=== PATIENT | male | born 1935 | race Caucasian/White ===

== ENCOUNTER 2020-10-10 07:46 | Observation (INO) ==
[2020-10-10] MEDS ORDERED: NS 0.9% 1000 ml BAG 1,000 ML IV ONE (07:53)
[2020-10-10 08:09] LABS: ABS Eosinophils 0.2 10^3/ul (0-0.6); ABS Lymphocytes 1.2 10^3/ul (1.0-4.8); ABS Monocytes 0.6 10^3/ul (0-0.8); ABS Neutrophils 4.8 10^3/ul (1.5-7.7); Eosinophil % 2.6 %; Hematocrit 45 % (42-52); Hemoglobin 15.3 g/dL (14.0-18.0); Lymphocyte % 17.5 %; Mean Corpuscular HGB Conc 34 g/dL (31-36); Mean Corpuscular Hemoglobin 32 pg (27-31); Mean Corpuscular Volume 93 fL (80-94); Mean Platelet Volume 9.4 fL (7.4-10.4); Nucleated Red Blood Cells % 0.1; Platelet Count 108 10^3/uL (150-450); Red Blood Count 4.85 10^6 /uL (4.18-5.48); Red Cell Distribution Width 14 % (10-15); White Blood Count 6.9 10^3/uL (3.5-10.8)
[2020-10-10] MEDS ORDERED: Iodixanol (CONTRAST) 320 MG/ML 100 ML SDV IV ONE (08:13)
[2020-10-10 08:19] LABS: Activated Partial Thrombo Time 44.4 seconds (26.0-38.0); INR 3.16 (0.82-1.09)
[2020-10-10 08:22] LABS: Albumin 3.6 g/dL (3.2-5.2); Albumin/Globulin Ratio 1.5 (1-3); Calcium 8.6 mg/dL (8.6-10.3); EGFR African American 87.6 (>60); EGFR Non-African American 72.4 (>60); Globulin 2.4 g/dL (2-4); HDL Cholesterol 47.1 mg/dL; Potassium 4.2 mmol/L (3.5-5.0); Total Bilirubin 1.3 mg/dL (0.2-1.0); Troponin I 0.01 ng/mL (<0.03)
[2020-10-10] MEDS ORDERED: Magnesium Hydroxide LIQ 30 ML UDC PO PRN (12:17)
[2020-10-10] MEDS ORDERED: Polyethylene Glycol 3350 17 GM PACKET PO PRN (12:20)
[2020-10-10 12:46] LABS: Urine Appearance Clear; Urine Bacteria Absent (Absent); Urine Bilirubin Negative (Negative); Urine Blood Negative (Negative); Urine Color Yellow; Urine Glucose Negative (Negative); Urine Ketones Negative (Negative); Urine Nitrite Negative (Negative); Urine Protein Negative (Negative); Urine Red Blood Cell 2+(6-10/hpf) (Absent); Urine Squamous Epithelial Cell Present (Absent); Urine Urobilinogen Negative (Negative); Urine White Blood Cell Trace(0-5/hpf) (Absent)
[2020-10-10] MEDS ORDERED: Warfarin per PHARMACY **NOTE FOLLOW UP SCH (13:00)
[2020-10-10 13:45] LABS: Indirect Bilirubin 1.1 mg/dL (0.3-1.0)
[2020-10-10] MEDS ORDERED: Lidocaine PATCH 5% PATCH TRANSDERM PRN (15:34)
[2020-10-10] MEDS ORDERED: Warfarin - No Order Today **NOTE FOLLOW UP ONE (17:00)
[2020-10-11 06:09] LABS: ABS Eosinophils 0.2 10^3/ul (0-0.6); ABS Lymphocytes 1.2 10^3/ul (1.0-4.8); ABS Monocytes 0.6 10^3/ul (0-0.8); ABS Neutrophils 5.2 10^3/ul (1.5-7.7); Eosinophil % 3.1 %; Hematocrit 47 % (42-52); Hemoglobin 15.7 g/dL (14.0-18.0); Lymphocyte % 16.2 %; Mean Corpuscular HGB Conc 34 g/dL (31-36); Mean Corpuscular Hemoglobin 32 pg (27-31); Mean Corpuscular Volume 94 fL (80-94); Mean Platelet Volume 9.3 fL (7.4-10.4); Platelet Count 119 10^3/uL (150-450); Red Blood Count 4.95 10^6 /uL (4.18-5.48); Red Cell Distribution Width 15 % (10-15); White Blood Count 7.2 10^3/uL (3.5-10.8)
[2020-10-11 06:12] LABS: INR 2.78 (0.82-1.09)
[2020-10-11 06:26] LABS: Calcium 8.7 mg/dL (8.6-10.3); EGFR African American 81.8 (>60); EGFR Non-African American 67.6 (>60); Potassium 3.9 mmol/L (3.5-5.0)
[2020-10-11] MEDS: Potassium Chlor 20 meq TAB.ER PO SCH (08:38)
[2020-10-11] MEDS: Warfarin DAILY REMINDER **NOTE FOLLOW UP SCH (16:37)
[2020-10-12 06:46] LABS: INR 2.49 (0.82-1.09)
[2020-10-12] MEDS: Potassium Chlor 20 meq TAB.ER PO SCH (08:26)
[2020-10-12] MEDS: Warfarin DAILY REMINDER **NOTE FOLLOW UP SCH (16:14)
[2020-10-13 07:48] LABS: INR 2.55 (0.82-1.09)
[2020-10-13] MEDS: Potassium Chlor 20 meq TAB.ER PO SCH (07:57)
[2020-10-13 11:46] VITALS: BP 111/76
== END 2020-10-13 12:15 ==
LOC: ED 07:46 → MED 12:17 → INTOOBSV 12:17 → MED 14:18
PROVIDERS: ADMIT Hospitalist; ATTEND Internal Medicine

== ENCOUNTER 2021-01-31 05:15 | Inpatient (IN) ==
[2021-01-31] MEDS ORDERED: NS 0.9% 1000 ml BAG 1,000 ML IV ONE (05:23)
[2021-01-31] MEDS ORDERED: Naloxone 0.4 mg VIAL 0.4 mg/ml 1 ml VIAL IV PUSH ONE (05:24)
[2021-01-31 06:41] LABS: ABS Lymphocytes 0.8 10^3/ul (1.0-4.8); ABS Monocytes 0.3 10^3/ul (0-0.8); ABS Neutrophils 4.6 10^3/ul (1.5-7.7); Eosinophil % 0.6 %; Hematocrit 44 % (42-52); Hemoglobin 14.5 g/dL (14.0-18.0); Lymphocyte % 14.3 %; Mean Corpuscular HGB Conc 33 g/dL (31-36); Mean Corpuscular Hemoglobin 31 pg (27-31); Mean Corpuscular Volume 93 fL (80-94); Mean Platelet Volume 9.7 fL (7.4-10.4); Platelet Count 113 10^3/uL (150-450); Red Blood Count 4.68 10^6 /uL (4.18-5.48); Red Cell Distribution Width 15 % (10-15); White Blood Count 5.8 10^3/uL (3.5-10.8)
[2021-01-31 06:55] LABS: Rapid COVID-19 Molecular Undetected (Undetected)
[2021-01-31 07:08] LABS: Activated Partial Thrombo Time 31.7 seconds (26.0-38.0); INR 1.48 (0.86-1.15)
[2021-01-31 07:12] LABS: Albumin 3.2 g/dL (3.2-5.2); Albumin/Globulin Ratio 1.4 (1-3); Calcium 8.3 mg/dL (8.6-10.3); EGFR African American 92.7 (>60); EGFR Non-African American 76.6 (>60); Globulin 2.3 g/dL (2-4); HDL Cholesterol 37.4 mg/dL; Potassium 4.5 mmol/L (3.5-5.0); Total Bilirubin 0.7 mg/dL (0.2-1.0); Total Protein 5.5 g/dL (6.4-8.9)
[2021-01-31 07:14] LABS: Troponin I 0.01 ng/mL (<0.03)
[2021-01-31 08:00] LABS: Urine Appearance Cloudy; Urine Bilirubin Negative (Negative); Urine Blood 3+ (Negative); Urine Color Yellow; Urine Glucose Negative (Negative); Urine Ketones Negative (Negative); Urine Nitrite Negative (Negative); Urine Protein Negative (Negative); Urine Specific Gravity 1.021 (1.002-1.030); Urine Urobilinogen Negative (Negative)
[2021-01-31 08:04] LABS: Urine Bacteria Absent (Absent); Urine Red Blood Cell 3+(>10/hpf) (Absent); Urine White Blood Cell Trace(0-5/hpf) (Absent)
[2021-01-31] MEDS ORDERED: Morphine 2 MG/ML SYRINGE IV PRN (09:14)
[2021-01-31] MEDS: Atropine 1% (ORAL/SL) 15 ML BTL SL PRN ×3 (15:27→19:41)
[2021-01-31] MEDS ORDERED: LORazepam 2 mg VIAL 1 ml IV PUSH PRN (17:20)
[2021-01-31] MEDS ORDERED: Lorazepam PYXIS KEY PRN (17:20)
[2021-01-31] MEDS: Morphine 2 MG/ML SYRINGE IV PRN ×2 (17:38→20:07)
[2021-02-01 08:05] VITALS: BP 87/62
[2021-02-01] MEDS: Atropine 1% (ORAL/SL) 15 ML BTL SL PRN ×2 (19:08→20:56)
[2021-02-01] MEDS: Morphine 2 MG/ML SYRINGE IV PRN ×3 (19:09→22:46)
[2021-02-02] MEDS: Atropine 1% (ORAL/SL) 15 ML BTL SL PRN ×6 (00:34→15:03)
[2021-02-02] MEDS: Morphine 2 MG/ML SYRINGE IV PRN ×14 (00:35→21:34)
[2021-02-02] MEDS ORDERED: Lorazepam PYXIS KEY PRN ×2 (02:51→09:56)
[2021-02-02] MEDS ORDERED: LORazepam 2 mg VIAL 1 ml IV PUSH ONE (02:51)
[2021-02-02] MEDS: LORazepam 2 mg VIAL 1 ml IV PUSH PRN ×3 (10:32→20:35)
[2021-02-02] MEDS: Glycopyrrolate IV 0.2 MG/ML 1 ML VIAL IV SLOW PU SCH (21:32)
[2021-02-03] MEDS: Morphine 2 MG/ML SYRINGE IV PRN ×2 (02:18→04:33)
[2021-02-03] MEDS: Glycopyrrolate IV 0.2 MG/ML 1 ML VIAL IV SLOW PU SCH (02:18)
[2021-02-03] MEDS: LORazepam 2 mg VIAL 1 ml IV PUSH PRN (04:34)
== END 2021-02-03 05:55 | disposition expired | DRG 65 ==
LOC: ED 05:15 → MED 09:11 → SUATTDRO 09:11 → MED 13:06
PROVIDERS: ADMIT Internal Medicine; ATTEND Internal Medicine